=== PATIENT | female | born 1960 | race Caucasian/White ===

== ENCOUNTER → 2017-12-27 08:20 | Outpatient (CLI) | payer MEDICAID, SELFPAY ==
--- NOTE | 2017-12-27 08:29 | MM_ITS ---
MM Dig screening mamm BI w/CAD CAD Screening COMPARISON: Digital mammograms 05/30/2015 and 12/22/2016 INDICATION: There is no personal or family history of breast cancer TECHNIQUE: Standard CC and MLO images were obtained. R2 CAD reviewed. FINDINGS: Scattered fibroglandular densities with are seen in the central portions of both breasts. There is a possible asymmetric density lower portion left breast only definitely seen on the MLO view. There is no other suspicious lesion in either breast and there are no suspicious microcalcifications. IMPRESSION: Fibrofatty parenchyma with possible asymmetric density left breast and recommend the patient return for spot compression views and possibly ultrasound if this proves to be a true lesion. BI-RADS Category: 0 Need Additional Imaging Evaluation RECOMMENDED FOLLOW-UP: IMM - IMMEDIATE FOLLOW-UP RECOMMENDED (A letter has been sent to the patient regarding results of the study.)
--- NOTE | 2017-12-27 08:29 | XR_ITS ---
XR DEXA axial skeleton HISTORY: ITS.REASON: POST MENOPAUSE ORDERING PHYSICIAN: Nisha Reddy MD PATIENT AGE: 57 years FINDINGS: The BMD measured at the left femoral neck is 0.862 g/cm squared with a T score of -1.3 . This is considered Osteopenic according to the World Health Organization criteria. Fracture risk is Moderate. Treatment is advised. L1 L4 density has a T score of 1.5. IMPRESSION: Osteopenia with moderate fracture risk. Treatment recommended. Recommend follow-up exam December 2019
== END ==
PROVIDERS: PCP Family Medicine; Visit Provider Family Medicine
DX: Z12.31 Encounter for screening mammogram for malignant neoplasm of breast (principal); Z78.0 Asymptomatic menopausal state; Z90.710 Acquired absence of both cervix and uterus; Z13.820 Encounter for screening for osteoporosis
CPT/HCPCS: 77067; 77080

== ENCOUNTER → 2018-01-20 08:47 | Outpatient (CLI) | payer MEDICAID, SELFPAY ==
--- NOTE | 2018-01-20 08:49 | FL_ITS ---
EXAM: Barium swallow/esophagram. INDICATION: ITS.REASON: dysphagia ORDERING PHYSICIAN: Tunde Eubanks MD PATIENT AGE: 57 years COMPARISON: None TECHNIQUE: In the upright position the patient was observed to swallow barium in both the AP and lateral view. The cervical esophagus was examined under fluoroscopy with images obtained. The patient was then placed prone in the right anterior oblique position and was observed to swallow barium with Valsalva technique . FLUOROSCOPY TIME: 51 seconds FINDINGS: There was no evidence of aspiration. There was normal peristalsis. No filling defects or mucosal abnormalities. No masses or strictures. IMPRESSION: Negative barium swallow.
== END ==
PROVIDERS: Family Provider Family Medicine; PCP Family Medicine; Visit Provider Surgery
DX: R13.10 Dysphagia, unspecified (principal)
CPT/HCPCS: 74220

== ENCOUNTER → 2018-01-26 13:43 | Outpatient (CLI) | payer MEDICAID, SELFPAY ==
--- NOTE | 2018-01-26 13:49 | US_ITS ---
MM Dig mamm DX unilat LT CAD, US breast LT complete INDICATION: Follow-up abnormal screening exam ORDERING PHYSICIAN: Nisha Reddy MD PATIENT AGE: 57 years COMPARISON: 12/27/2017, 12/22/2016 TECHNIQUE: Problem-solving views performed along with left breast ultrasound FINDINGS: Asymmetric density that was noted in the inferior aspect of the left breast does appear to compress out on focal spot compression view with some interspersed fat in this area not readily apparent in the orthogonal plane and not apparent on ultrasound. There is a benign-appearing nodule in the medial aspect of the left breast measuring 5 mm. No malignant appearing mass or malignant appearing microcalcifications. Left breast ultrasound: 6 mm cyst at 12:00, 3 mm cyst at 2:00, 3 mm x 5 mm isoechogenicity at 9:00 possibly due to small cyst or complex cyst having some internal echoes but enhanced through transmission of sound. 8 x 4 mm probable cyst at 10:00 No suspicious sonographic anomalies evident IMPRESSION: Probably benign findings. No convincing evidence of malignancy. Multiple breast cysts. Asymmetric density lower aspect of left breast may be due to overlapping fibroglandular tissue. Short-term mammographic follow-up recommended BI-RADS Category: 3 Benign Finding Short Term Follow-up RECOMMENDED FOLLOW-UP: 6M - 6 MONTH FOLLOW-UP Recommend 6 month mammographic and sonographic follow-up of the left (A letter has been sent to the patient regarding results of the study.)
== END ==
PROVIDERS: Family Provider Family Medicine; PCP Family Medicine; Visit Provider Family Medicine
DX: R92.8 Other abnormal and inconclusive findings on diagnostic imaging of breast (principal)
CPT/HCPCS: 76641; 77065

== ENCOUNTER → 2018-02-16 10:40 | Outpatient (CLI) | payer MEDICAID, SELFPAY ==
--- NOTE | 2018-02-16 10:40 | FL_ITS ---
FL barium swallow modified: 02/16/2018 10:40 AM CLINICAL HISTORY: Dysphagia ORDERING PHYSICIAN: Tunde Eubanks MD PATIENT AGE: 57 years Comparison: None TECHNIQUE: Patient administered varying consistencies of barium contrast, while viewed in lateral position under real-time fluoroscopy with cine recording. FLUOROSCOPY TIME: US 38 seconds The study was performed in conjunction with speech pathologist. Please see that report & recommendations. FINDINGS: Patient was given varying consistencies of barium. There was no evidence of vestibular penetration or tracheal aspiration. No impairment identified. IMPRESSION: Unremarkable modified barium swallow Please see speech pathologist report and recommendations.
--- NOTE | 2018-02-16 13:10 | HMH.SLMBS2 ---
Speech & Language Evaluation Speech/Language Mod Barium Swallow Start: 02/16/18 13:03 Freq: once Status: Complete Protocol: Document 02/16/18 13:03 TANJA (Rec: 02/16/18 13:10 TANJA [id number]) MBS Recommendations Diet Dietary Recommendations Regular Thin Liquids Treatment/Strategies Treatment Recommendation Chewing Exercises Strategy/Precaution Recommend Chin Tuck Small Bites and Sips Alternate Liquids/Solids Mod Barium Swallow Impressions Summary and Impressions Oral Phase Impression Minimal Impairment Oral Phase Summary Ms. Cox exhibited with minimal impairment with oral phase with the following consistencies: mechanical soft , regular, and mixed. Ms. Cox did not thoroughly masticate consistencies which could cause difficulty in pharyngeal and esophageal phase of swallowing. Advised Ms. Cox to thoroughly chew foods in order to safely swallow with no signs of dysphagia. Pharyngeal Phase Impression No Impairment (WFL) Pharyngeal Phase Summary No impairments noteed. Speech/Language MBS Assessment/Goals/Plan Assessment Date of Evaluation: 02/16/18 Evaluation Type Initial Certification Assessment/Problems Dysphagia Does Patient Qualify for Service No Qualify/Failure Comment Patient exhibited minimal signs of dysphagia. Provided patient with HEP and compensatory strategies and to follow up in 1 week with GI specialist. Plan Pt/Guardian verbally ack understanding Yes of dx/prognosis/goals G -code Required No Education Instructions provided Thoroughly masticate food consistenices, take small bites and small sips throughout meal, and alternate between bite and sip Mod Barium Swallow Setup Exam Setup Radiologist Wojciech Perales Level of Consciousness Awake Alert Appropriate Position (degrees) 90 Mod Barium Swallow-Lat View Textures Lateral View Food Presentation Thin Liquid via Cup Thin Liquid via Straw
== END ==
PROVIDERS: Family Provider Family Medicine; PCP Family Medicine; Visit Provider Surgery
DX: R13.10 Dysphagia, unspecified (principal)
CPT/HCPCS: 70371; 92611

== ENCOUNTER → 2018-08-01 13:46 | Outpatient (CLI) | payer MEDICAID, SELFPAY ==
--- NOTE | 2018-08-01 13:59 | MM_ITS ---
MM Dig mamm DX unilat LT CAD, US breast LT complete INDICATION: 6 month follow-up ORDERING PHYSICIAN: Nisha Reddy MD PATIENT AGE: 58 years COMPARISON: None TECHNIQUE: Standard images performed along with spot compression views and left breast ultrasound FINDINGS: There is average fibroglandular tissue. Asymmetric density once again noted in the lower aspect of the left breast which does appear to efface on spot compression views. Nodular density was noted on the regular views and the medial aspect of the left breast. This however did appear to compress out.. No malignant appearing masses or malignant appearing microcalcifications. Left breast ultrasound: There are scattered small cyst once again noted the largest in the 12:00 region at 7 mm. No suspicious nodules are evident. IMPRESSION: Benign findings, no evidence of malignancy. Recommend screening mammogram follow up in December 2018 BI-RADS Category: 2 Benign Finding(s) RECOMMENDED FOLLOW-UP: 6M - 6 MONTH FOLLOW-UP (A letter has been sent to the patient regarding results of the study.)
== END ==
PROVIDERS: PCP Family Medicine; Visit Provider Family Medicine
DX: Z09 Encounter for follow-up examination after completed treatment for conditions other than malignant neoplasm (principal); R92.8 Other abnormal and inconclusive findings on diagnostic imaging of breast
CPT/HCPCS: 76641; 77065

== ENCOUNTER → 2019-02-17 08:18 | Outpatient (CLI) | payer MEDICAID, SELFPAY ==
--- NOTE | 2019-02-17 08:22 | MM_ITS ---
MM Dig screening mamm BI w/CAD ORDERING PHYSICIAN : Nisha Reddy MD PATIENT AGE: 58 years GENDER: Female COMPARISON: bilateral. Bilateral mammogram December 2017, December & January 2018 left mammogram INDICATION: Routine screening mammogram. Takes Estrogen. No new complaints. Noncontributory family history. TECHNIQUE: Standard CC and MLO images were obtained. R2 CAD reviewed. FINDINGS: Heterogeneous, Moderate breast density and pattern bilaterally. No dominant mass nor suspicious calcifications in either breast. . No significant new areas of concern Bilateral follow-up in one year recommended. RIGHT BREAST:. No new areas concern. Stable architecture and appearance. LEFT BREAST:No new areas of concern Area of minor density at the inferior left breast is less evident today than on last years studies Scattered small faint calcification left breast producing noted less evident on today's studies IMPRESSION: ......... No area no new areas of significant concern Stable bilateral mammogram. Bilateral follow-up in one year . BI-RADS Category: 2 Benign Finding(s) RECOMMENDED FOLLOW-UP: 1YR 1 YEAR FOLLOW-UP (A letter has been sent to the patient regarding results of the study.)
== END ==
PROVIDERS: PCP Family Medicine; Visit Provider Family Medicine
DX: Z12.31 Encounter for screening mammogram for malignant neoplasm of breast (principal)
CPT/HCPCS: 77067

== ENCOUNTER → 2020-04-16 10:45 | Outpatient (CLI) | payer OTHER, SELFPAY ==
--- NOTE | 2020-04-16 10:50 | MM_ITS ---
PROCEDURE: MM DIG SCREENING MAMM BI W/CAD Digital Breast Tomosynthesis Included CLINICAL INDICATION: SCREENING There is a history of breast cancer patient's paternal aunt. COMPARISON: MG DXLT MM Dig mamm DX unilat LT CAD from 01/26/2018 MG DXLT MM Dig mamm DX unilat LT CAD from 08/01/2018 MG DIG MAMM-SCREEN LAURIE from 02/17/2019 TECHNIQUE: Standard CC and MLO images and 3D Tomosynthesis was obtained. R2 CAD reviewed. FINDINGS: Moderate fibroglandular densities are seen in the central portions of both breast and the findings are bilateral and symmetrical. There is a tiny benign-appearing nodular density upper-outer quadrant right breast. There are stable fatty replaced nodes left axilla. There is no suspicious lesion and no suspicious microcalcifications. IMPRESSION: Fibrofatty parenchyma with no suspicious lesions seen BI-RAD Category: 1 Negative FOLLOW-UP: 1YR 1 Year Follow-up (A letter has been sent to the patient regarding results of the study.) Dictated Dr. Dmitriy Ruvalcaba MD 04/16/2020 13:48 Dr. Dmitriy Fernandez MD in [place] 04/16/2020 13:48
== END ==
PROVIDERS: PCP Family Medicine; Visit Provider Family Medicine
DX: Z12.31 Encounter for screening mammogram for malignant neoplasm of breast (principal)
CPT/HCPCS: 77063; 77067

== ENCOUNTER → 2021-05-01 09:43 | Outpatient (CLI) | payer OTHER, SELFPAY ==
--- NOTE | 2021-05-01 09:46 | MM_ITS ---
PROCEDURE: MM DIG SCREENING MAMM BI W/CAD Digital Breast Tomosynthesis Included CLINICAL INDICATION: SCREENING COMPARISON: MG DXLT MM Dig mamm DX unilat LT CAD from 08/01/2018 MG DIG MAMM-SCREEN LAURIE from 02/17/2019 MG MM DIG SCREENING MAMM BI W/CAD from 04/16/2020 TECHNIQUE: Standard CC and MLO images and 3D Tomosynthesis was obtained. R2 CAD reviewed. FINDINGS: There are scattered areas of fibroglandular density. Right breast: There are 2 benign-appearing nodules in the inferior aspect of the right breast which are 4 mm each and appear stable. Benign-appearing nodule in the mid aspect of the right breast superiorly at 3 mm which appear stable. Benign-appearing calcifications right breast. No suspicious appearing mass, malignant-appearing microcalcification, architectural distortion, or skin thickening. Left breast: No suspicious appearing mass, malignant-appearing microcalcification, architectural distortion, or skin thickening.. Scattered areas of asymmetric tissue IMPRESSION: Benign findings. No change with no evidence of malignancy. BI-RAD Category: 2 Benign Finding FOLLOW-UP: 1 YR 1 Year Follow-up (A letter has been sent to the patient regarding results of the study.) Dictated by: Wojciech Perales MD 05/08/2021 11:10 Wojciech Perales MD in [place] 05/08/2021 11:10
== END ==
PROVIDERS: PCP Family Medicine; Visit Provider Family Medicine
DX: Z12.31 Encounter for screening mammogram for malignant neoplasm of breast (principal)
CPT/HCPCS: 77063; 77067

== ENCOUNTER → 2022-05-04 10:44 | Outpatient (CLI) | payer OTHER, SELFPAY ==
--- NOTE | 2022-05-04 10:50 | MM_ITS ---
PROCEDURE INFORMATION: Exam: MG Bilateral Screening 3D Mammography Exam date and time: 05/04/2022 10:48 AM Age: 61 years old Clinical indication: Screening examination. A paternal aunt had breast cancer. TECHNIQUE: Imaging protocol: Bilateral Screening tomosynthesis and 2D mammography including computer-aided detection (CAD) when performed. COMPARISON: 1. MG MM DIG SCREENING MAMM BI W/CAD 05/01/2021 9:44 AM 2. MG MM DIG SCREENING MAMM BI W/CAD 04/16/2020 11:02 AM 3. MG DIG MAMM-SCREEN LAURIE 02/17/2019 8:42 AM 4. MG DXLT MM Dig mamm DX unilat LT CAD 08/01/2018 2:03 PM FINDINGS: MAMMOGRAPHY: Breast composition: There are scattered areas of fibroglandular density. Mass: Bilateral scattered circumscribed masses, no significant change. No suspicious mass. Architectural distortion: None. Calcifications: No suspicious calcifications. Asymmetric density: None. Skin thickening: None. Axillary adenopathy: None. IMPRESSION: No mammographic evidence of malignancy. Annual screening is recommended unless otherwise clinically indicated. ASSESSMENT: BI-RADS Category 1: Negative
== END ==
PROVIDERS: PCP Family Medicine; Visit Provider Family Medicine
DX: Z12.31 Encounter for screening mammogram for malignant neoplasm of breast (principal)
CPT/HCPCS: 77063; 77067

== ENCOUNTER → 2023-07-05 09:44 | Outpatient (CLI) | payer OTHER, SELFPAY ==
--- NOTE | 2023-07-05 09:48 | MM_ITS ---
PROCEDURE INFORMATION: Exam: MG Bilateral Screening 3D Mammography Exam date and time: 07/05/2023 9:39 AM Age: 63 years old Clinical indication: Screening examination TECHNIQUE: Imaging protocol: Bilateral Screening tomosynthesis and 2D mammography including computer-aided detection (CAD) when performed. COMPARISON: 1. MG MM DIG SCREENING MAMM BI W/CAD 05/04/2022 10:48 AM 2. MG MM DIG SCREENING MAMM BI W/CAD 05/01/2021 9:44 AM FINDINGS: MAMMOGRAPHY: Breast composition: There are scattered areas of fibroglandular density. Mass: No new or suspicious masses. Architectural distortion: None. Calcifications: No suspicious calcifications. Asymmetric density: None. Skin thickening: None. Axillary adenopathy: None. IMPRESSION: No mammographic evidence of malignancy. Annual screening is recommended unless otherwise clinically indicated. ASSESSMENT: BI-RADS Category 1: Negative
== END ==
PROVIDERS: PCP Family Medicine; Visit Provider Family Medicine
DX: Z12.31 Encounter for screening mammogram for malignant neoplasm of breast (principal)
CPT/HCPCS: 77063; 77067

== ENCOUNTER 2024-07-12 12:42 | Outpatient (CLI) | payer MEDICARE, OTHER, SELFPAY ==
--- NOTE | 2024-07-12 12:45 | MM_ITS ---
PROCEDURE INFORMATION: Exam: MG Bilateral Screening 3D Mammography Exam date and time: 07/12/2024 12:39 PM Age: 64 years old Clinical indication: Screening examination TECHNIQUE: Imaging protocol: Bilateral Screening tomosynthesis and 2D mammography including computer-aided detection (CAD) when performed. COMPARISON: 1. MG MM DIG SCREENING MAMM BI W/CAD 07/05/2023 9:39 AM 2. MG MM DIG SCREENING MAMM BI W/CAD 05/04/2022 10:48 AM FINDINGS: MAMMOGRAPHY: Breast composition: There are scattered areas of fibroglandular density. Mass: None. Architectural distortion: None. Calcifications: No suspicious calcifications. Asymmetric density: None. Skin thickening: None. Axillary adenopathy: None. IMPRESSION: No mammographic evidence of malignancy. Annual screening is recommended unless otherwise clinically indicated. ASSESSMENT: BI-RADS Category 1: Negative.
== END 2024-07-12 23:59 | disposition home or self-care (01) ==
LOC: RAD 12:43
PROVIDERS: PCP Family Medicine; Visit Provider Family Medicine
DX: Z12.31 Encounter for screening mammogram for malignant neoplasm of breast (principal)
CPT/HCPCS: 77063; 77067

== ENCOUNTER 2024-10-29 15:04 | Emergency (ER) | payer MEDICARE, OTHER, SELFPAY ==
[2024-10-29] VITALS (8 sets, daily range): BP systolic 119–220; BP diastolic 62–94; PULSE 68–88; RESP 20; TEMP 36.8; O2SAT 95–99; BMI 34.6
--- NOTE | 2024-10-29 15:21 | XR_ITS ---
PROCEDURE INFORMATION: Exam: XR Chest Exam date and time: 10/29/2024 3:42 PM Age: 64 years old Clinical indication: Other: Epigastric pain TECHNIQUE: Imaging protocol: Radiologic exam of the chest. Views: 1 view. COMPARISON: No relevant prior studies available. FINDINGS: Lungs: Unremarkable. No consolidation. Pleural spaces: Unremarkable. No pleural effusion. No pneumothorax. Heart/Mediastinum: Unremarkable. No cardiomegaly. Bones/joints: Unremarkable. IMPRESSION: No acute findings.
[2024-10-29] MEDS: KETOROLAC 30MG/ML VIAL 15 MG IV (15:32)
[2024-10-29] MEDS: ONDANSETRON 4MG/2ML VIAL 4 MG IV (15:32)
[2024-10-29] MEDS: BELLADONNA ALKALOIDS 60 ML ML PO (15:34)
[2024-10-29] MEDS: FAMOTIDINE 20MG TABLET 20 MG PO (15:34)
--- NOTE | 2024-10-29 15:37 | ECG_ITS ---
APPROVED REPORT Exam: Resting ECG HR:66 bpm ECG Measurements Heart Rate 66 AXES OH 172 P 59 QRSd 95 QRS 17 QT 399 T 42 QTc 412 Conclusion SINUS RHYTHM LOW QRS VOLTAGE IN PRECORDIAL LEADS [QRS DEFLECTION < 1.0 mV IN CHEST LEADS] BORDERLINE ECG No STEMI Electronically signed by : MIGUEL GALDAMEZ, 10/31/2024 06:46:30
--- NOTE | 2024-10-29 15:41 | PC.NURSE ---
XR AT BEDSIDE
[2024-10-29 15:45] LABS: Microscopic, Urine URINE MICROSCOPIC (MICROSCOPIC)
--- NOTE | 2024-10-29 15:46 | PC.NURSE ---
ROUNDED ON THE PT. THE PT VOICES THAT SHE DOES NOT NEED ANYTHING AT THIS TIME. CALL LIGHT IS WITHIN REACH OF THE PT.
[2024-10-29 15:48] LABS: Basophils # 0.1 K/mm3 (0-0.2); Basophils % 0.8 % (0.1-2.0); Eosinophils # 0.2 K/mm3 (0.0-0.4); Eosinophils % 3.1 % (0.1-12.0); Hematocrit 37.5 % (37.0-47.0); Hemoglobin 12.9 g/dL (12.2-16.2); Lymphocytes # 1.9 K/mm3 (0.7-4.5); Lymphocytes % 30.8 % (10-50); Mean Corpuscular HGB Conc 34.4 g/dL (31.8-35.4); Mean Corpuscular Hemoglobin 29.3 pg (27.0-31.2); Mean Corpuscular Volume 85.2 fl (81-99); Mean Platelet Volume 9.5 fl (7.4-10.4); Monocytes # 0.5 K/mm3 (0.1-1.0); Monocytes % 8.7 % (1.7-9.3); Neutrophils # 3.4 K/mm3 (1.8-7.8); Neutrophils % 56.3 % (37.0-80.0); Platelet Count 298 K/mm3 (142-424); White Blood Count 6.1 K/mm3 (4.8-10.8)
--- NOTE | 2024-10-29 16:08 | ED_ITS ---
Discharge Plan Disposition Patient Disposition: Home, Self-Care Chief Complaint: Abdominal Pain Prescriptions Prescriptions: No Action fenofibrate nanocrystallized 145 mg tablet 145 mg PO DAILY omega 9-rmg-mtj-fish oil 60-90-500 mg capsule 1 cap PO DAILY cholecalciferol (vitamin D3) 250 mcg (10,000 unit) capsule 250 mcg PO DAILY ascorbate calcium (vitamin C) 500 mg tablet 500 mg PO DAILY ascorbic acid (vitamin C) [Vitamin C] 500 mg tablet 1 g PO DAILY metformin 500 mg tablet 500 mg PO DAILY estradiol 0.0375 mg/24 hr patch semiweekly 1 patch transdermal ONCE oxybutynin chloride 10 mg tablet extended release 24hr 10 mg PO DAILY estradiol [Estrace] 0.01 % (0.1 mg/gram) cream 1 appful vaginal DAILY Qty: 42.5 2RF simvastatin 20 mg tablet 20 mg PO QPM lisinopril-hydrochlorothiazide 20-12.5 mg tablet 1 tab PO ONCE aspirin 81 mg tablet,delayed release (DR/EC) 81 mg PO ONCE levothyroxine 50 mcg capsule 75 mcg PO ONCE Referrals Follow up/Referrals: Nisha Reddy MD [Primary Care Provider] - See instructions Activity Restrictions/Add. Instructions Additional Instructions/Restrictions: Call your family doctor to establish care for this visit to the emergency department and schedule follow-up within 48 hours to ensure improvement. If you have any worsening of your condition or any other concerning signs or symptoms, return to the emergency department or your primary care doctor for further evaluation. Clinical Impressions Clinical Impression: Abdominal pain Instructions Patient Instructions: DI for Acute Abdominal Pain Print Language Print Language: Citizen Of The [place] Discharge ED Provider: Solomon Hale General Adult HPI General Chief complaint: Abdominal Pain Stated complaint: RT side abd pain Time Seen by Provider: 10/29/24 15:05 Mode of Arrival: Ambulatory Source of Information: Patient and Relative Limitations: No Limitations Description of Symptoms (Recalled from ER Triage Doc. by RN): pt has right sided abd pain that started last night with n/v/d, pt states she has had previous episode a month ago but went away, pt has no hx of kidney stones or abd surgery History of Present Illness HPI narrative: Please note that above description of symptoms, in this electronic medical record under categorization of recalled from ER triage doctor by RN are reflective of an initial nursing assessment, however, is not reflective of my full history and physical exam that was personally taken and clarified. Consequentially, this preceding description of symptoms, which may include the patient's categorized chief complaint in the EMR, do not reflect my personal clinical impression, and the ultimate description of history of present illness and patient stated complaints should be deferred to this section of the note. Unless stated otherwise or congruent with this section of the note, additional signs, symptoms, or incongruence should be interpreted as inaccurate with my clinical impression. Related Data Home Medications ?Medication ?Instructions ?Recorded ?Confirmed aspirin 81 mg tablet,delayed 81 mg PO ONCE 01/12/18 10/29/24 release lisinopril 20 1 tab PO ONCE 01/12/18 10/29/24 mg-hydrochlorothiazide 12.5 mg tablet simvastatin 20 mg tablet 20 mg PO QPM 01/12/18 10/29/24 ascorbate calcium (vitamin C) 500 500 mg PO DAILY 07/21/21 10/29/24 mg tablet cholecalciferol (vitamin D3) 250 250 mcg PO DAILY 07/21/21 10/29/24 mcg (10,000 unit) capsule fenofibrate nanocrystallized 145 145 mg PO DAILY 07/21/21 10/29/24 mg tablet omega 9-nro-vvr-fish oil 60 mg-90 1 cap PO DAILY 07/21/21 10/29/24 mg-500 mg capsule ascorbic acid (vitamin C) 500 mg 1 g PO DAILY 12/16/23 10/29/24 tablet (Vitamin C) estradiol 0.0375 mg/24 hr 1 patch transdermal ONCE 12/16/23 10/29/24 semiweekly transdermal patch levothyroxine 50 mcg capsule 75 mcg PO ONCE 12/16/23 10/29/24 metformin 500 mg tablet 500 mg PO DAILY 12/16/23 10/29/24 oxybutynin chloride 10 mg 10 mg PO DAILY 12/16/23 10/29/24 tablet,extended release 24 hr Previous Rx's ?Medication ?Instructions ?Recorded estradiol 0.01% (0.1 mg/gram) 1 appful vaginal DAILY #42.5 grams 12/21/23 vaginal cream (Estrace) Allergies Allergy/AdvReac Type Severity Reaction Status Date / Time aspirin Allergy Mild Nausea Verified 10/29/24 15:26 diphenhydramine (From Allergy Unknown NA-NAUSEA/V Verified 10/29/24 15:26 BENADRYL) OMITING PFSH PFSH Disclaimer: The information contained in this section may have been updated after the patient was seen, as this information can be updated by other users. Medical History (Updated 10/29/24 @ 18:40 by Solomon Hale MD) History of gastroesophageal reflux (GERD) Hyperlipidemia Hypothyroidism Hypertension Surgical History History of bladder surgery H/O total hysterectomy Social History Smoking Status: Never smoker alcohol intake: never substance use type: denies use current occupational status: employed Travel in the last 8 weeks: None household members: family housing: house Have you lived/traveled outside US in past 30 days?: No Contact w/someone who lives/traveled outside US past 30 days?: No Exposure to someone with infectious disease in past 14 days?: No Do you have a fever (greater than 100.4 F or 38 C)?: No Have you tested positive for COVID-19: No Exposed to someone with COVID-19 in past 14 days?: No Do you have a sore throat?: No Do you have a cough?: No Do you have any weakness?: No Do you have any diarrhea?: No Are you experiencing any unusual bleeding?: No Do you have any muscle aches/pain?: No Do you have any abdominal pain?: No Are you experiencing loss of taste or smell?: No Other Medical History Have you received the Flu Vaccine for this season: Yes Have you received the Pneumonia Vaccine: No ROS Obtained: Yes All systems reviewed & no additional complaints except as documented Physical Exam General General appearance: alert Head Head exam: atraumatic and normocephalic Eye Eye exam: Present normal appearance, PERRL and EOMI Neck Neck exam: Present normal inspection, full ROM and trachea midline Respiratory Respiratory exam: Absent respiratory distress, wheezes, stridor, accessory muscle use or prolonged expiratory phase Cardiovascular Cardiovascular exam: Present other (Pulses equal symmetric in upper and lower extremities) Abdominal Exam Abdominal exam: Present soft; Absent distention, tenderness or pulsatile mass Extremities Exam Extremities exam: Absent edema Neurological Exam Neurological exam: Present alert, oriented X3 and CN II-XII intact; Absent motor sensory deficit Skin Skin exam: Present warm and dry; Absent diaphoresis or erythema Medical Decision Making Medical Records Medical records reviewed: Yes I reviewed the patient's medical records. Screening: Per USPSTF and CDC recommendations, given the prevalence of disease in our region, it is our hospital?s policy to screen for HIV and viral Hepatitis for all patients aged 18 and over and those with ongoing risk factors. Valdo Inquiry Pt receiving controlled substance: No Valdo was queried for this patient: No Vital Signs: 10/29/24 15:05 10/29/24 15:42 10/29/24 16:03 Temperature 98.3 F Temperature Source Oral Pulse Rate 72 82 Pulse Rate [Left Radial] 85 Respiratory Rate 20 Blood Pressure 179/86 H 220/94 H Blood Pressure [Right Arm] 155/78 H Blood Pressure Mean [Right Arm] 103 02 Sat by Pulse Oximetry 99 98 98 Oxygen Delivery Method Room Air Room Air Room Air 10/29/24 16:31 10/29/24 17:01 10/29/24 17:31 Temperature Temperature Source Pulse Rate 73 88 76 Pulse Rate [Left Radial] Respiratory Rate Blood Pressure 164/76 H 166/89 H 119/62 Blood Pressure [Right Arm] Blood Pressure Mean [Right Arm] 02 Sat by Pulse Oximetry 95 98 98 Oxygen Delivery Method Room Air Room Air Room Air 10/29/24 17:45 Temperature Temperature Source Pulse Rate 71 Pulse Rate [Left Radial] Respiratory Rate Blood Pressure 119/62 Blood Pressure [Right Arm] Blood Pressure Mean [Right Arm] 02 Sat by Pulse Oximetry 96 Oxygen Delivery Method Room Air Lab Data Lab Results 10/29/24 15:38: WBC 6.1, RBC 4.40, Hgb 12.9, Hct 37.5, MCV 85.2, MCH 29.3, MCHC 34.4, RDW 13.0, Plt Count 298, MPV 9.5, Neut % (Auto) 56.3, Lymph % (Auto) 30.8, [place] % (Auto) 8.7, Eos % (Auto) 3.1, Baso % (Auto) 0.8, Neut # (Auto) 3.4, Lymph # (Auto) 1.9, [place] # (Auto) 0.5, Eos # (Auto) 0.2, Baso # (Auto) 0.1, PT 9.6, I NR 0.86 L, APTT 25.7, Sodium 139, Potassium 3.7, Chloride 103, Carbon Dioxide 27, Anion Gap 12.7, BUN 16, Creatinine 0.80, Estimated Creat Clear 84, Estimated GFR 72, Est GFR ( Amer) 87, Glucose 90, Hemoglobin A1c 5.2, Calcium 9.1, Total Bilirubin 0.7, AST 41 H, ALT 43, Alkaline Phosphatase 48, Troponin I < 0.01, Total Protein 6.9, Albumin 4.4, Globulin 2.5, Albumin/Globulin Ratio 1.8, Triglycerides 173 H, Cholesterol 130 L, LDL Cholesterol Direct 54.80 L, VLDL Cholesterol 35, HDL Cholesterol 35 L, Cholesterol/HDL Ratio 3.7 H, Lipase 71 10/29/24 15:42: Urine Color Yellow, Urine Appearance Clear, Urine pH 6.0, Ur Specific [place] 1.015, Urine Protein Negative, Urine Glucose (UA) Negative, Urine Ketones Negative, Urine Blood Negative, Urine Nitrate Negative, Urine Bilirubin Negative, Urine Urobilinogen 0.2, Ur Leukocyte Esterase 1+ A, Urine RBC None, Urine WBC 5-10, Ur Squamous Epith Cells 10-20, Urine Bacteria 2+ 10/29/24 15:38 10/29/24 15:38 Orders (Tests/Meds): ED MEDICATIONS Discontinued Medications Generic Name Dose Route Start Last Admin Trade Name Freq PRN Reason Stop Dose Admin Belladonna Alkaloids 60 ml 10/29/24 15:21 10/29/24 15:34 Belladonna Alkaloids 60 Ml Ml PO 10/29/24 15:22 60 ml ONCE ONE Administration Famotidine 20 mg 10/29/24 15:21 10/29/24 15:34 Famotidine 20mg Tablet PO 10/29/24 15:22 20 mg ONCE ONE Administration Iopamidol 75 ml 10/29/24 17:10 10/29/24 17:11 Iopamidol-370 (76%);100ml Bottle IV 10/29/24 17:11 75 ml ONCE ONE Administration Ketorolac Tromethamine 15 mg 10/29/24 15:21 10/29/24 15:32 Ketorolac 30mg/Ml Vial IV 10/29/24 15:22 15 mg ONCE ONE Administration Ondansetron HCl 4 mg 10/29/24 15:23 10/29/24 15:32 Ondansetron 4mg/2ml Vial IV 10/29/24 15:24 4 mg ONCE ONE Administration Sodium Chloride 10 ml 10/29/24 17:10 10/29/24 17:11 Sodium Chloride 0.9% 10ml Syr (Rad Only) IV 10/29/24 17:11 10 ml ONCE ONE Administration ORDERS Category Date Time Status CT abdomen pelvis w con Stat Cat Scan 10/29/24 16:52 Completed POCUS Point of Care (ER Only) Stat Exams 10/29/24 15:23 Completed XR chest portable Stat Exams 10/29/24 15:21 Completed Complete Blood Count Auto Diff Stat Lab 10/29/24 15:38 Completed Comprehensive Metabolic Panel Stat Lab 10/29/24 15:38 Completed Hemoglobin A1C Stat Lab 10/29/24 15:38 Completed Lipase Stat Lab 10/29/24 15:38 Completed Lipid Panel Stat Lab 10/29/24 15:38 Completed PT INR [Prothrombin Time INR] Stat Lab 10/29/24 15:38 Completed PTT [Activated Partial Thrombo Time] Stat Lab 10/29/24 15:38 Completed Troponin I Q3H Lab 10/29/24 18:30 Ordered Troponin I Q3H Lab 10/29/24 21:30 Ordered Troponin I Stat Lab 10/29/24 15:38 Completed Urinalysis and Microscopic Stat Lab 10/29/24 15:42 Completed Urine Culture Stat Micro 10/29/24 15:42 Received Medical Decision Narrative: 64-year-old female history of hypertension, hyperlipidemia, prediabetes, hypothyroidism, bladder spasticity presenting with right upper quadrant pain. She states that it has been going on and off for the last couple of months. This episode was severe in intensity and started when she was laying down in bed last night, 10/28. Since that time largely went away until this morning shortly after she woke up, prior to eating she had a severe onset right upper quadrant pain that did not radiate associated with nausea. No vomiting. She does state that she intermittently has diarrhea at baseline, she is currently having diarrhea, but it is nothing out of her norm. No blood in her stool. No chest pain, shortness of breath, fevers or chills. No dark urine or pale stools. Has not noticed anything that makes it better and currently pain is mild in intensity and has largely self abated. History was obtained via conversation with patient. On arrival, patient hemodynamically stable, alert, oriented x4, appropriate, GCS 15, moving all extremities spontaneously, pupils equal and reactive to light. Full physical exam performed and significant for very clinically well-appearing female no acute distress. Abdomen is soft, nondistended, mildly tender in epigastrium and right upper quadrant. Cardiopulmonary exam normal. No lower extremity edema. Neurologically intact, pleasant, speaking in full sentences. Differential includes PUD, gastritis, enteritis, gastroenteritis, pancreatitis, SBO, colitis, diverticulitis, nephrolithiasis, UTI, cholecystitis, choledocholithiasis, appendicitis, torsion, hepatitis, l ACS, MS, ess likely aortic pathology, mesenteric ischemia among others. Patient placed on continuous cardiac monitoring and continuous pulse ox with initial blood pressure 155/78, heart rate 85, saturation 99% on room air. Independent interpretation of EKG shows sinus rhythm 66 bpm with CO 172, QRS 95, QTc 412 with normal axis and no acute ischemic change. Patient was given meds for symptomatic management and correction of underlying abnormalities. Bedside [id number] ultrasound was performed and right upper quadrant completely normal. Nondistended gallbladder, no secondary signs of cholecystitis, normal wall thickness, no pericholecystic fluid and normal common bile duct. Workup independently interpreted and significant for normal white count and nonactionable CBC. Nonactionable other hematologic labs. Troponin negative. Urinalysis negative. Contaminated sample. Prolonged conversation had with patient and daughter regarding utility of CT scan with remarkably normal workup and likely negative outcome, still would like to proceed with scan. This was ordered. On independent interpretation of imaging, no acute intra-abdominal abnormality. See radiology read for full review of final results. On reevaluation, patient still resting comfortably, minimal pain. Given patient presentation, workup, history, this most likely represents musculoskeletal pain versus neuropathic pain. Because patient at baseline without signs or symptoms of clinical decompensation, deemed appropriate for discharge. Results were relayed to patient who voiced understanding and were agreeable to outpatient management and follow up. I discussed my clinical impression with patient and answered all questions. At this time, the evidence for any other entities in the differential is insufficient to warrant any further testing or ED observation. This was explained as well. Advisory was given that persistent or worsening symptoms require further evaluation. I confirmed the understanding of this discussion. Readers' Advisory Service Librarian disclaimer Much of this encounter note is an electronic bag maker spoken language to printed text. Electronic bag maker of the spoken language may permit errors. Although I have reviewed the note, some errors may still exist. Procedures Limited Ultrasound Indication:: Limited RUQ ultrasound Indication: Abdominal pain, nausea Identified structures: -Gallbladder -Gallbladder wall -Common bile duct -Liver Findings: Sonographic Nieto sign: Absent Gallstones: Absent Sludge: Absent Pericholecystic fluid: Absent Maximal GB wall thickness (mm) (normal is </= 3mm): Normal Common bile duct width (mm) (normal is </= 6mm): Normal Gallbladder width (cm) (normal is < 4cm): Normal Gallbladder length (cm) (normal is < 10cm): Normal Impression: Normal gallbladder with normal common bile duct and no secondary signs of cholecystitis Images were saved to permanent archive The study was technically adequate CPT 42849-12 This study was performed by me, and I personally interpreted all images/videos. Based on my clinical judgement, these images were adequate and did not necessitate further imaging. Critical Care Critical Care Time Critical Care Time: No
[2024-10-29 16:10] LABS: Appearance,Urine CLEAR (Clear); Bilirubin,Urine Negative (Negative); Blood, Urine Negative (Negative); Color,Urine YELLOW (Yellow); Glucose,Urine (UA) Negative (Negative); Ketones,Urine Negative (Negative); Leukocyte Esterase,Urine 1+ (Negative); Nitrate,Urine Negative (Negative); Protein,Urine Negative (Negative); Specific Gravity, Urine 1.015 (1.005-1.030); Urobilinogen,Urine 0.2 EU/dl (0.2)
[2024-10-29 16:13] LABS: Albumin Level 4.4 g/dl (3.5-5.0); Chloride 103 mmol/L (98-107); Potassium 3.7 mmoL/L (3.5-5.1); Sodium 139 mmol/L (136-145)
[2024-10-29 16:16] LABS: Activated Partial Thrombo Time 25.7 seconds (22.5-28.5); Alanine Aminotransferase 43 U/L (12-78); Albumin/Globulin Ratio 1.8 (1.1-1.8); Alkaline Phosphatase 48 U/L (38-126); Anion Gap 12.7 mEq/L (5-15); Aspartate Amino Transferase 41 U/L (14-36); Bilirubin,Total 0.7 mg/dl (0.2-1.3); Blood Urea Nitrogen 16 mg/dl (7-17); Carbon Dioxide 27 mmol/L (22.0-30.0); Creatinine Clearance Estimated 84 mL/min (50-200); Estimated Glomerular Filt Rate 72 ml/min (>60); GFR (African American) 87 ML/MIN (>60); Globulin 2.5 g/dL (1.3-3.2); Total Protein,Serum 6.9 g/dl (6.3-8.2)
[2024-10-29 16:17] LABS: Calcium 9.1 mg/dl (8.4-10.2); Glucose 90 mg/dl (74-100)
[2024-10-29 16:32] LABS: INR 0.86 (0.9-1.1); Prothrombin Time 9.6 seconds (9.2-12.1)
[2024-10-29 16:38] LABS: Hemoglobin A1C 5.2 % (4.0-6.0); Troponin I < 0.01 ng/ml (0.00-0.034)
--- NOTE | 2024-10-29 16:52 | CT_ITS ---
PROCEDURE INFORMATION: Exam: CT Abdomen And Pelvis With Contrast Exam date and time: 10/29/2024 5:08 PM Age: 64 years old Clinical indication: Abdominal pain; Other: Ruq pain and R flank pain TECHNIQUE: Imaging protocol: Computed tomography of the abdomen and pelvis with contrast. Radiation optimization: All CT scans at this facility use at least one of these dose optimization techniques: automated exposure control; mA and/or kV adjustment per patient size (includes targeted exams where dose is matched to clinical indication); or iterative reconstruction. Contrast material: ISOVUE; Contrast volume: 75 ml; Contrast route: IV; COMPARISON: CR XR CHEST PORTABLE 10/29/2024 3:42 PM FINDINGS: Lungs: Minimal linear markings in the lung bases suggest parenchymal scarring or atelectasis. The visualized lung bases are otherwise clear. Pleural spaces: There are no pleural effusions. Heart: The heart is not enlarged. There is no evidence of pericardial fluid collections. Liver: There is mild enlargement of the liver. The liver measures 22 cm in CC dimension. There is diffuse decrease in hepatic/liver parenchymal density consistent with fatty infiltration. Gallbladder and biliary ducts: Normal. No calcified stones. No ductal dilation. Pancreas: The pancreas is normal. Spleen: The spleen demonstrates punctate calcifications, consistent with remote granulomatous organism exposure. Adrenal glands: The adrenal glands are normal. Kidneys and ureters: The kidneys are normal. Stomach and bowel: The stomach is normal. The duodenum is unremarkable. Lack of gastrointestinal contrast limits evaluation of bowel. Unopacified loops of small bowel within range of normal. The colon appears within range of normal. Appendix: No evidence of appendicitis. Intraperitoneal space: There is no evidence of free intraperitoneal or pelvic fluid. No free air. Vasculature: No abdominal aortic aneurysm. Lymph nodes: Mild calcified right hilar lymph nodes indicate prior granulomatous disease. There is no evidence of pathologic adenopathy. Urinary bladder: The bladder is normal. Reproductive: The uterus is either atrophic or absent. No adnexal masses. Bones/joints: The thoracolumbar spine demonstrates mild degenerative changes at multiple levels. There is slight retrolisthesis of L5 on S1. There are moderate degenerative changes of the symphyseal pubic joint. There are mild degenerative changes of the hip joints. Soft tissues: Unremarkable. IMPRESSION: 1. Mild hepatomegaly. 2. Fatty hepatic infiltration.
[2024-10-29] MEDS: IOPAMIDOL-370 (76%);100ML BOTTLE 75 ML IV (17:11)
[2024-10-29] MEDS: SODIUM CHLORIDE 0.9% 10ML SYR (RAD ONLY) 10 ML IV (17:11)
[2024-10-29 17:18] LABS: Lipase 71 U/L (23-300)
[2024-10-29 17:19] LABS: Chol/HDL Ratio 3.7 (1-3.5); Cholesterol 130 mg/dl (140-200); HDL Cholesterol 35 mg/dl (40-60); Triglycerides 173 mg/dl (30-150); VLDL Cholesterol 35 mg/dL (0-40)
[2024-10-29 17:24] LABS: Bacteria,Urine 2+ /lpf
--- NOTE | 2024-10-29 17:41 | PC.NURSE ---
ROUNDED ON THE PT. THE PT VOICES THAT SHE DOES NOT NEED ANYTHING AT THIS TIME. CALL LIGHT IS WITHIN REACH OF THE PT. FAMILY MEMBER IS PRESENT AT THE BEDSIDE.
--- NOTE | 2024-10-29 17:53 | PC.NURSE ---
rounded on patient and let them know we are just waiting ct results and er md would be back in for re eval
--- NOTE | 2024-10-29 18:45 | PC.NURSE ---
DR STRAUSS AT BEDSIDE TO UPDATE PT AND FAMILY
--- NOTE | 2024-10-30 12:33 | PC.NURSE ---
spoke with pt about urine culture, update that an antibiotic was called in [facility]
--- NOTE | 2024-11-01 08:35 | PC.NURSE ---
URINE CULTURE DISCUSSED WITH DR STRAUSS, NO NEW ORDERS
--- NOTE | 2024-11-02 12:25 | PC.NURSE ---
URINE CULTURE DISCUSSED WITH DR DAY, NO NEW ORDERS
== END 2024-10-29 18:54 | disposition home or self-care (01) ==
PROVIDERS: Emergency Provider Emergency Medicine; PCP Family Medicine
DX: R10.9 Unspecified abdominal pain (principal)
CPT/HCPCS: 71045; 74177; 80053; 80061; 81001; 83036; 83690; 84484; 85025; 85610; 85730; 87077; 87086; 87088; 93005; 96374; 96375; 99285; J1885; J2405; Q9967

== ENCOUNTER 2024-12-15 10:57 | Outpatient (CLI) | payer MEDICARE, SELFPAY | END 2024-12-15 23:59 | disposition home or self-care (01) | LOC: LAB.DROPOF 12-18 10:58 | PROVIDERS: PCP Nurse Practitioner; Visit Provider Nurse Practitioner | DX: N39.0 Urinary tract infection, site not specified (principal) | CPT/HCPCS: 87086; 87088; 87186 ==

== ENCOUNTER 2025-02-13 06:25 | Day surgery (SDC) | payer MEDICARE, MEDICAID, SELFPAY ==
[2025-02-12 14:34] VITALS: BMI 34.9
[2025-02-13] MEDS: LACTATED RINGERS 1000ML 1,000 ML 50 ML IV (06:38)
[2025-02-13 06:44] VITALS: BP 143/78; PULSE 75; RESP 18; TEMP 36.1; O2SAT 95
--- NOTE | 2025-02-13 06:54 | EXP.GEN.HP ---
HPI HPI HPI: This is a 64-year-old female who presents for colonoscopy. She is without complaint. She states that she had a colonoscopy approximately 7 years ago that she believes was normal . [facility] Disclaimer: The information contained in this section may have been updated after the patient was seen, as this information can be updated by other users. Medical History History of gastroesophageal reflux (GERD) Hyperlipidemia Hypothyroidism Hypertension Surgical History History of bladder surgery H/O total hysterectomy Family History No significant family history Social History Smoking Status: Never smoker alcohol intake: never substance use type: denies use current occupational status: employed Travel in the last 8 weeks?: None household members: family housing: house Have you lived/traveled outside US in past 30 days?: No Contact w/someone who lives/traveled outside US past 30 days?: No Exposure to someone with infectious disease in past 14 days?: No Do you have a fever (greater than 100.4 F or 38 C)?: No Have you tested positive for COVID-19?: No Exposed to someone with COVID-19 in past 14 days?: No Do you have a sore throat?: No Do you have a cough?: No Do you have any weakness?: No Do you have any diarrhea?: No Are you experiencing any unusual bleeding?: No Do you have any muscle aches/pain?: No Do you have any abdominal pain?: No Are you experiencing loss of taste or smell?: No Other Medical History Have you received the Flu Vaccine for this season: Yes Have you received the Pneumonia Vaccine: No Review of Systems Review of Systems Review of systems:: pertinent systems reviewed and negative unless documented below Meds Home Medications and Allergies Home Medications ?Medication ?Instructions ?Recorded ?Confirmed ?Type aspirin 81 mg tablet,delayed 81 mg PO ONCE 01/12/18 02/12/25 History release lisinopril 20 1 tab PO ONCE 01/12/18 02/12/25 History mg-hydrochlorothiazide 12.5 mg tablet simvastatin 20 mg tablet 20 mg PO QPM 01/12/18 02/12/25 History ascorbate calcium (vitamin C) 500 500 mg PO DAILY 07/21/21 02/12/25 History mg tablet cholecalciferol (vitamin D3) 250 250 mcg PO DAILY 07/21/21 02/12/25 History mcg (10,000 unit) capsule fenofibrate nanocrystallized 145 145 mg PO DAILY 07/21/21 02/12/25 History mg tablet omega 7-pgk-zea-fish oil 60 mg-90 1 cap PO DAILY 07/21/21 02/12/25 History mg-500 mg capsule ascorbic acid (vitamin C) 500 mg 1 g PO DAILY 12/16/23 02/12/25 History tablet (Vitamin C) estradiol 0.0375 mg/24 hr 1 patch transdermal ONCE 12/16/23 02/12/25 History semiweekly transdermal patch levothyroxine 50 mcg capsule 75 mcg PO ONCE 12/16/23 02/12/25 History metformin 500 mg tablet 500 mg PO DAILY 12/16/23 02/12/25 History oxybutynin chloride 10 mg 10 mg PO DAILY 12/16/23 02/12/25 History tablet,extended release 24 hr cefadroxil 500 mg capsule 500 mg PO BID PRN uti 5 days #10 10/30/24 02/12/25 Rx caps nitrofurantoin 100 mg PO Q12H 5 days #10 caps 12/15/24 02/12/25 Rx monohydrate/macrocrystals 100 mg capsule (Macrobid) phenazopyridine 200 mg tablet 200 mg PO Q8H 2 days #6 tabs 12/15/24 02/12/25 Rx (Pyridium) New Prescriptions to Start Prescriptions: Allergies Allergy/AdvReac Type Severity Reaction Status Date / Time aspirin Allergy Mild Nausea Verified 02/13/25 06:43 diphenhydramine (From Allergy Unknown NA-NAUSEA/V Verified 02/13/25 06:43 BENADRYL) OMITING Exam Data for Last 24 hours I & O for Last 24 hours: Intake & Output 02/10/25 02/11/25 02/12/25 02/13/25 11:59 11:59 11:59 11:59 Weight 210 lb Constitutional Constitutional: no acute distress *Routine HEENT Exam Head: Present normocephalic Eye: Present EOMI ENT: Present mucous membranes moist *Routine Neck Exam Neck: Present full ROM *Routine Respiratory Exam Respiratory: Absent respiratory distress *Routine Cardiovascular Exam Cardiovascular: Absent tachycardia *Routine Abdominal Exam Abdominal: Present soft *Routine Rectal Exam Rectal:: deferred *Routine Genitalia Exam Genitalia:: deferred *Routine Extremities Exam Extremities: Present full ROM *Routine Skin Exam Skin: Absent erythema *Routine Neurological Exam Neurological: Present alert Assessment and Plan *Assessment and plan (1) Encounter for screening colonoscopy: Status: Acute Category: Medical Code(s): Z12.11 - Encounter for screening for malignant neoplasm of colon Plan: Colonoscopy today I have discussed the risks and benefits including, but not limited to: Bleeding Infection Damage to surrounding tissue Inherent risks of sedation The patient agrees to proceed.
--- NOTE | 2025-02-13 07:04 | P.PCN_ITS ---
Procedure: Date: 02/13/25 Patient Date of :: 1960 Procedure Performed:: Colonoscopy Indications:: Screening Performing Provider:: Tunde Eubanks MD Referring Provider:: . Sedation:: Monitored anesthesia care Procedure:: After informed consent was obtained the patient was taken to the endoscopy suite. Sedation ensued after the patient was transferred to the left lateral decubitus position. Pulse, blood pressure, and oxygen saturation were monitored throughout the procedure. Digital rectal exam revealed no significant abnormality. The colonoscope was placed in position. The entire colon was eval uated. The colonoscope was carefully removed and the patient was transferred to recovery in stable condition. Please see findings and specimens below for detail. Findings:: Bowel preparation fair Fairly profound spasticity/lack of relaxation Fairly severe tortuosity Specimens:: none Recommendations:: Repeat colonoscopy in 3 to 5 years secondary to spasticity/lack of relaxation and tortuous Complications:: No immediate Estimated blood obtained (mL): 0 Colonoscopy Component Colonoscopy Component Was a colonoscopy performed during today's procedure?: Yes Recommended follow up colonoscopy of at least 10 years?: No If no, follow up colonoscopy recommended in ___ years?: (See above) Reason for not recommending >/= 10 yr follow-up interval?: (See above)
--- NOTE | 2025-02-13 07:06 | EXP.ANES.CKL ---
[facility] Disclaimer: The information contained in this section may have been updated after the patient was seen, as this information can be updated by other users. Medical History History of gastroesophageal reflux (GERD) Hyperlipidemia Hypothyroidism Hypertension Surgical History History of bladder surgery H/O total hysterectomy Family History Other No significant family history Social History Smoking Status: Never smoker alcohol intake: never substance use type: denies use current occupational status: employed Travel in the last 8 weeks?: None household members: family housing: house Have you lived/traveled outside US in past 30 days?: No Contact w/someone who lives/traveled outside US past 30 days?: No Exposure to someone with infectious disease in past 14 days?: No Do you have a fever (greater than 100.4 F or 38 C)?: No Have you tested positive for COVID-19?: No Exposed to someone with COVID-19 in past 14 days?: No Do you have a sore throat?: No Do you have a cough?: No Do you have any weakness?: No Do you have any diarrhea?: No Are you experiencing any unusual bleeding?: No Do you have any muscle aches/pain?: No Do you have any abdominal pain?: No Are you experiencing loss of taste or smell?: No [facility] Anesthesia Checklist Patient Identification Patient Identification: Arm Band Structural Data Admitted From: Home Planned Operative Procedure/s: Colonoscopy Consent for Planned Operative Procedure(s) Verified: Yes Verified Documents: Surgical Consent and History and Physical NPO Status Verified Time NPO: 03:30 Additional verifications Anesthesia Reactions: No Airway Assessment Mallampati Score:: Class II C-Spine Mobility Assessed: Yes TMJ Mobility Assessed: Yes Dentition: Good Dentition Neurological Assessment Level of Consciousness: Awake, Alert and Appropriate Anesthesia Plan Anesthesia Risk discussed: Yes Anesthesia Plan: Verified ASA Class: II Anesthesia Type: MAC
[2025-02-13 08:10] VITALS: BP 111/66; PULSE 73; RESP 16; TEMP 36.4; O2SAT 95
[2025-02-13 08:20] VITALS: BP 121/71; PULSE 66; RESP 16; O2SAT 97
[2025-02-13 08:30] VITALS: BP 124/67; PULSE 62; RESP 16; O2SAT 98
[2025-02-13 08:40] VITALS: BP 127/72; PULSE 62; RESP 17; O2SAT 99
== END 2025-02-13 08:44 | disposition home or self-care (01) ==
PROVIDERS: PCP Family Medicine; Visit Provider Surgery
PROC: 0DJD8ZZ Inspection of Lower Intestinal Tract, Via Natural or Artificial Opening Endoscopic (ICD-10-PCS; CPT G0121; principal; 2025-02-13 07:30)
DX: Z12.11 Encounter for screening for malignant neoplasm of colon (principal); K58.9 Irritable bowel syndrome, unspecified; Q43.8 Other specified congenital malformations of intestine; E78.5 Hyperlipidemia, unspecified; E03.9 Hypothyroidism, unspecified; I10 Essential (primary) hypertension; Z79.82 Long term (current) use of aspirin; Z79.899 Other long term (current) drug therapy; Z79.890 Hormone replacement therapy; Z79.84 Long term (current) use of oral hypoglycemic drugs; Z88.6 Allergy status to analgesic agent; Z88.8 Allergy status to other drugs, medicaments and biological substances
CPT/HCPCS: G0121; J2704; J7120

== ENCOUNTER 2025-05-01 09:08 | Outpatient (CLI) | payer MEDICARE, MEDICAID, SELFPAY ==
--- OUTSIDE RECORDS SUMMARY | 2025-05-03 10:27 | XMS_ITS | Clinical Summary ---
Author Organization [facility] Address [address] [place] [address] Care Team Providers Care Drawing Tracer Name Role Phone Santhosh Reddy MD Primary Care Provider [phone] Allergies Active Allergy Reactions Criticality Noted Date Comments Aspirin GI Intolerance Low 05/03/2020 Sick to stomach, powder kind not tablets Diphenhydramine GI Intolerance Low 05/03/2020 Medications levothyroxine (SYNTHROID, LEVOTHROID) 50 MCG tablet Take 50 mcg by mouth Daily. 04/19/2020 Active simvastatin (ZOCOR) 20 MG tablet Take 20 mg by mouth Every Night. 04/08/2020 Active lisinopril-hydr ochlorothiazide (PRINZIDE,ZESTO RETIC) 20-12.5 MG per tablet Take 1 tablet by mouth Daily. 05/02/2020 Active estradiol (VIVELLE-DOT) 0.025 MG/24HR patch Place 1 patch on the skin as directed by provider 2 (Two) Times a Week. 04/21/2020 Active ascorbic acid (VITAMIN C) 1000 MG tablet Take 1,000 mg by mouth Daily. Active Zinc 50 MG capsule Take 50 mg by mouth Daily. Active Multiple Vitamin (DAILY VITAMIN PO) Take 1 tablet by mouth Daily. Active loratadine (Allergy) 10 MG tablet Take 10 mg by mouth Daily. Active [place]-3 Fatty Acids (fish oil) 1000 MG capsule capsule Take by mouth Daily With Breakfast. 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 If month not known, enter X' Black numbers = normal results Red numbers = abnormal results Black X = patient reported normal Red X - patient reported abnormal Referred by: Dr. Woodall - for prolapse and incontinence Profession: Other info: Essential hypertension 09/06/2013 Acquired hypothyroidism 09/06/2013 High cholesterol 09/06/2013 Resolved Problems Problem Noted Date Diagnosed Date Resolved Date S/P Anterior/posterior colpo perineorrhaphy & TVOT 07/02/2020 07/02/2020 08/16/2020 Cystocele with rectocele 05/03/2020 OAB (overactive bladder) 09/06/201507/2020 Social History Tobacco Use Types Packs/Day Years Used Date Smoking Tobacco: Never Smokeless Tobacco: Never Alcohol Use Standard Drinks/Week Comments Never 0 (1 standard drink = 0.6 oz pur e alcohol) AUDIT-C Answer Date Recorded Q1: How often do you have a drink containing alc ohol? Never 08/16/2020 Average Number of Drinks Not on file 020 Frequency of Binge Drinking Not on file 08/06 Abuse Screen Answer Date Recorded Unsafe at Home or Work/School Not on file Feels Threatened by Someone? Not on file 08/2023 Does Anyone Keep You from Co ntacting Others or Doint Things Outside the Home? Not on file 06/17/2023 Physical Sign of Abuse Present Not on file 1 Housing Stability Answer Date Recorded Current Living Arrangements Not on file 06/06 Potentially Unsafe Housing Conditions Not on deandre e 06/17/2023 Family and Community Support Answer Sudeep e Recorded Help with Day-to-Day Activities Not on file 06/17/2023 Lonely or Isolated Not on file 06/17/2023 Employment Answer Date Recorded Do you want help finding or keeping work or a angelo b? Not on file 06/17/2023 Disabilities Answer Date Recorded Concentrating, Remembering, or Making Decisions Difficulty Not on file 06/17/2023 Doing Errands Independently Difficulty Not on fi le 06/17/2023 Education Answer Date Recorded Help with school or training? Not on file Preferred Language Not on file 06/17/2023 Comments No Sex and Gender Information Value Date Recorded Sex Assigned at Not on file Legal Sex Female 9:20 AM EDT Gender Identity Not on file Sexual Orientation Not on file Last Filed Vital Signs Vital Sign Reading Time Taken Comments Blood Pressure 126/80 02/13/2021 1:46 PM EDT Pulse 90 07/05/2020 7:00 AM EDT Temperature 36.7 C (98.1 F) 07/05/2020 7:00 AM EDT Respiratory Rate 14 02/13/2021 1:46 PM EDT Oxygen Saturation 92% 07/05/2020 7:00 AM EDT Inhaled Oxygen Concentration - - Weight 96.2 kg (212 lb) 02/13/2021 1:46 PM EDT Height 165.1 cm (5' 5 ) 07/02/2020 11:30 AM EDT Body Mass Index 35.28 07/02/2020 11:30 AM EDT Plan of Treatment Health Maintenance Due Date Last Done Comments DXA SCAN 1960 LIPID PANEL 1960 TDAP/TD VACCINES (1 - Tdap) 1978 MAMMOGRAM 1999 COLOGUARD 2004 COLON CANCER SCREENING 5 YEAR SIGMOIDOSCOPY 2004 COLONOSCOPY 2004 [address] CANCER SCREENING 2004 CT COLONOGRAPHY 2004 FECAL OCCULT BLOOD TEST 2004 FIT Testing (1 year) 2004 Pneumococcal Vaccine 50+ (1 of 1 - PCV) 2009 ZOSTER VACCINE (1 of 2) 2009 ANNUAL PHYSICAL 05/03/2020 HEPATITIS C SCREENING 05/03/2020 COVID-19 Vaccine (1 - season) 2024 INFLUENZA VACCINE 06/06/2025 Medical Devices Implanted Type Area Production Support Supervisor Device Identifier Shelf Expiration Date Model / Serial / Lot Slng Mid Ureth Obtryx2 Transobt Halo Sys - [id number] Implanted:Qty : 1 on 07/02/2020 by Colten Woodall MD at [facility] Implant N/A: Vagina Papriika [employer]ITA 10/05/2022 [id number] / / [id number] Kt Seal Hemos Abs Floseal Matrx Fast/Prep 5ml - [id number] Implanted:Qty : 1 on 07/02/2020 by Colten Woodall MD at [facility] Implant N/A: Vagina Dev[employer] 01/07/2021 [id number] / / [id number] Insurance [facility] Advance Directives * CPR (Attempt to Resuscitate) (Latest Code Status on File) Date Activated Date Inactivated Comments 07/02/2020 11:59 AM 07/05/2020 2:55 PM Question Answer Comments Code Status (Patient has no pulse and is not breathing): CPR (Attempt to Resuscitate) Medical Interventions (Patie nt has pulse or is breathing): Full Level Of Support Discussed With: Patient Care Teams Drawing Tracer Relationship Specialty Start Date End Date Santhosh Reddy MD [address] [place] [address] PCP - General Family Medicine 05/03/20
== END 2025-05-01 23:59 | disposition home or self-care (01) ==
LOC: LAB.DROPOF 05-03 10:25
PROVIDERS: PCP Obstetrics & Gynecology; Visit Provider Obstetrics & Gynecology
DX: N76.0 Acute vaginitis (principal); B37.9 Candidiasis, unspecified
CPT/HCPCS: 87491; 87529; 87591; 87661; 87798; 87801

== ENCOUNTER 2025-05-29 10:49 | Outpatient (CLI) | payer MEDICARE, MEDICAID, SELFPAY ==
--- OUTSIDE RECORDS SUMMARY | 2025-05-29 10:53 | XMS_ITS | Clinical Summary ---
Author Organization [facility] Address [address] [place] [address] Care Team Providers Care Cut File Clerk Name Role Phone Santhosh Reddy MD Primary Care Provider [phone] Allergies Active Allergy Reactions Criticality Noted Date [...] Take 10 mg by mouth Daily. Active [place]-3 Fatty Acids (fish oil) 1000 MG capsule capsule Take by mouth Daily With Breakfast. 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 S/P LAVHBSO 04/11/2020 Overview (05/03/2020): SCREENING [...] ANNUAL PHYSICAL 05/03/2020 HEPATITIS C SCREENING 05/03/2020 INFLUENZA VACCINE 04/06/2025 COVID-19 Vaccine (1 - season) 2025 Medical Devices Implanted Type Area Paper Coating Supervisor Device Identifier Shelf Expiration Date Model / Serial / Lot Slng Mid Ureth Obtryx2 Transobt Halo Sys - [id number] Implanted:Qty : 1 on 07/02/2020 by Colten Woodall MD at [facility] Implant N/A: Vagina [employer] CHIQUITA 10/05/2022 [id number] / / [id number] Kt Seal Hemos Abs Floseal Matrx Fast/Prep 5ml - [id number] Implanted:Qty : 1 on 07/02/2020 by Colten Woodall MD at [facility] Implant N/A: Vagina [employer] 01/07/2021 [id number] / / [id number] Insurance [facility] Advance Directives * CPR (Attempt to Resuscitate) (Latest Code Status on File) Date Activated Date Inactivated Comments 07/02/2020 11:59 AM 07/05/2020 2:55 PM Question Answer Comments Code Status (Patient has no pulse and is not breathing): CPR (Attempt to Resuscitate) Medical Interventions (Patie nt has pulse or is breathing): Full Level Of Support Discussed With: Patient Care Teams Cut File Clerk Relationship Specialty Start Date End Date Santhosh Reddy MD [address] [facility] [place] [address] PCP - General Family Medicine 05/03/20
--- NOTE | 2025-05-29 10:54 | XR_ITS ---
FINAL REPORT CLINICAL HISTORY: SCIATIC NERVE PAIN PAIN NORMALLY ON RIGHT SIDE FINDINGS: AP, lateral, and oblique views of the lumbar spine were obtained. There is no prior exam for comparison. There is grade 1 anterior spondylolisthesis of L4 on L5. Alignment is otherwise normal. Vertebral body heights are preserved. There is multilevel degenerative disc disease most pronounced at L5-S1. No acute paraspinal abnormality is identified. IMPRESSION: Degenerative/chronic change without acute osseous abnormalities lumbar spine. Reviewed, Interpreted and Dictated by Princess Combs MD Transcribed by Brooklynn Pérez Authenticated and [facility]
== END 2025-05-29 23:59 | disposition home or self-care (01) ==
LOC: RAD 10:51
PROVIDERS: PCP Family Medicine; Visit Provider Family Medicine
DX: M47.26 Other spondylosis with radiculopathy, lumbar region (principal)
CPT/HCPCS: 72110

== ENCOUNTER 2025-06-25 14:45 | Outpatient (RCR) | payer MEDICARE, MEDICAID, SELFPAY | END 2025-06-25 23:59 | disposition home or self-care (01) | LOC: PT 14:45 | PROVIDERS: PCP Family Medicine; Visit Provider Family Medicine | DX: M19.90 Unspecified osteoarthritis, unspecified site (principal) | CPT/HCPCS: 97162 ==

== ENCOUNTER 2025-08-03 11:00 | Outpatient (RCR) | payer MEDICARE, MEDICAID, SELFPAY | END 2025-08-03 23:59 | disposition home or self-care (01) | LOC: PT 11:00 | PROVIDERS: PCP Family Medicine; Visit Provider Family Medicine | DX: M19.90 Unspecified osteoarthritis, unspecified site (principal) | CPT/HCPCS: 97014; 97110; 97140; G0283 ==